=== PATIENT | female | born 1985 ===

== ENCOUNTER 2019-05-26 18:47 | Emergency (ER) | payer OTHER ==
--- OUTSIDE RECORDS SUMMARY | 2019-05-26 20:10 | XMS REPORT | Continuity of Care Document ---
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 [phone] Problems Description No Information Available Social History Type Date Description Comments Sex Unknown Tobacco Use Start: Unknown Never Smoked Cigarettes Smoking Status Reviewed: 05/03/18 Never Smoked Cigarettes ETOH Use Rare Use Of Alcohol Recreational Drug Use Never Used Drugs Allergies, Adverse Reactions, Alerts Active Allergies Reaction Severity Comments Date Penicillin 05/01/2018 Shellfish-Derived Products 05/01/2018 Medications Active Medications SIG Qnty Indications Ordering Provider Date Fluticasone Propionate 2 sprays each 29.7ml William Omer, 04/01/2019 nostril every M.D. 50mcg/Act Suspension day Azithromycin 2 pills x 1 day 6tabs William Omer, 04/01/2019 250mg then 1 every day M.D. Tablets for 4 days Levothyroxine Sodium 1 by mouth every Unknown day 75mcg Tablets Immunizations Description No Information Available Vital Signs Date Vital Result Comment 04/01/2019 9:35am Weight 121.00 lb Height 63 inches 5'3" BMI (Body Mass Index) 21.4 kg/m2 BP Systolic 124 mmHg BP Diastolic 85 mmHg Heart Rate 79 /min O2 % BldC Oximetry 98 % Body Temperature 98.6 F Pain Level 3 05/01/2018 10:00am Weight 115.00 lb Height 63 inches 5'3" BMI (Body Mass Index) 20.4 kg/m2 BP Systolic 92 mmHg BP Diastolic 63 mmHg Heart Rate 54 /min O2 % BldC Oximetry 100 % Body Temperature 97.9 F Raymond Score 15 Neck Circumference in inches 12.25 Pain Level 0 Results Description No Information Available Procedures Date Code Description Status 04/01/2019 76996 Nasal Endoscopy, Diag. Completed Medical Devices Description No Information Available Encounters Type Date Location Provider Dx Diagnosis Office Visit 04/01/2019 Main Office Myriam Klein J34.3 Hypertrophy of nasal 9:30a SCULLION CHIEF turbinates J01.90 Acute sinusitis, unspecified Assessments Date Code Description Provider 04/01/2019 J34.3 Hypertrophy of nasal turbinates Myriam Klein NP 04/01/2019 J01.90 Acute sinusitis, unspecified Myriam Klein NP Plan of Treatment Future Appointment(s):05/03/2019 2:15 pm - Myriam Klein NP at Main Office Functional Status Description No Information Available Mental Status Description No Information Available Referrals Description No Information Available
--- OUTSIDE RECORDS SUMMARY | 2019-05-26 20:10 | XMS REPORT | Continuity of Care Document ---
:1985 External Reference #:[id number] Author Name Zhang Durham (transmitted by agent of provider Ivy Villegas) Address [address] [place] [address] Problems Description No Information Available Social History Type Date Description Comments Sex Unknown Tobacco Use Start: Unknown Patient has never smoked Smoking Status Reviewed: 06/16/17 Patient has never smoked Allergies, Adverse Reactions, Alerts Active Allergies Reaction Severity Comments Date Penicillin 01/24/2017 Shellfish-Derived Products hives 01/24/2017 Medications Active Medications SIG Qnty Indications Ordering Provider Date Levothyroxine Sodium Tab 1 PO Q 90tabs Amanda Douglass MD 05/05/2017 75mcg Day Tablets Medications Administered in Office Medication SIG Qnty Indications Ordering Provider Date PPD Injection Amanda Douglass MD 01/27/2018 PPD Injection Nurse 01/27/2018 PPD Injection Amanda Douglass MD 01/29/2017 Immunizations CPT Code Status Date Vaccine Lot # [id number] Given 02/27/2017 Tetanus,Diphtheria,Adut/Adol Pertussis [id number] Given 02/27/2017 Tetanus,Diphtheria,Adut/Adol Pertussis [id number] Vital Signs Date Vital Result Comment 03/09/2019 3:05pm BP Systolic 110 mmHg BP Diastolic 80 mmHg Heart Rate 85 /min Respiratory Rate 16 /min Height 64.5 inches 5'4.50" Weight 125.00 lb BMI (Body Mass Index) 21.1 kg/m2 O2 % BldC Oximetry 99 % 09/24/2018 11:51am BP Systolic 90 mmHg BP Diastolic 60 mmHg Heart Rate 88 /min Body Temperature 99.0 F Height 63 inches 5'3" Weight 125.00 lb BMI (Body Mass Index) 22.1 kg/m2 O2 % BldC Oximetry 97 % Results Test Acquired Date Facility Test Result H/L Range Note Laboratory test 04/08/2019 [facility] Thyroid Stim 4.13 uIU/mL Normal 0.30-4.[address] [place] [address] [phone] Free T4 0.91 ng/dL Normal 0.76-1.46 CBS W/Automated 02/22/2019 [facility] White 5.0 K/uL Normal 3.1-10.7 [address] [place] [address] Count [phone] Red Blood Count 4.55 M/uL Normal 3.90-5.40 Hemoglobin 14.2 gm/dL Normal 11.6-15.8 Hematocrit 41.9 % Normal 36.0-46.1 Mean Cell Volume 92.1 fl Normal 80.9-99.0 Mean Corpuscular HGB 31.2 pg Normal 25.9-32.7 Mean Corpuscular HGB Conc 33.9 g/dL Normal 30.8-34.3 Platelet Count 243 K/uL Normal 155-360 Red Cell Distri Width SD 42.6 fl Normal 36-47 Red Cell Distri Width %CV 12.6 % Normal 11.7-14.4 Mean Platelet Volume 9.9 fl Normal 8.9-12.4 Neut% 60.2 % Normal 40.4-72.8 Lymph % 30.6 % Normal 20.0-42.0 [place] % 6.0 % Normal 4.3-13.2 Eo% 2.0 % Normal 0.0-6.6 Bas% 0.8 % Normal 0.0-1.1 Immature Grans 0.4 % Normal 0.0-5.0 NRBC % 0.0 /100WBC < 10/ 100 WBC Neut# 3.03 K/uL Normal 1.8-7.0 Lymph # 1.54 K/uL Normal 1.0-4.0 [place] # 0.30 K/uL Normal 0.3-0.9 Eos # 0.10 K/uL Normal 0.0-0.5 Baso # 0.04 K/uL Normal 0.0-0.1 Immature Grans Absolute 0.02 K/uL NRBC # 0.00 K/uL Comprehensive 02/22/2019 [facility] Glucose 92 mg/dL Normal 74-106 Metabolic Panel [address] [place], [place] [id number] [phone] BUN 19 mg/dL High 7-18 Creatinine 1.0 mg/dL Normal 0.6-1.3 Glom Filtration Rate, Estimate >60 mL/min >60 If >60 mL/min >60 2 BUN/Creat 19.0 ratio Sodium 136 mmol/L Normal 136-145 Potassium 3.8 mmol/L Normal 3.5-5.1 Chloride 105 mmol/L Normal 98-107 Carbon Dioxide 28 mmol/L Normal 21-32 Anion Gap 3 mEq/L Low 8-16 Calcium 8.5 mg/dL Normal 8.5-10.1 Total Protein 8.0 g/dL Normal 6.4-8.2 Albumin 4.4 g/dL Normal 3.4-5.0 Globulin 3.6 g/dL Normal 1.9-4.3 Alb/Glob 1.2 ratio Bilirubin,Total 0.6 mg/dL Normal 0.2-1.0 Sgot/Ast 16 U/L Normal 15-37 SGPT/Alt 21 U/L Normal 12-78 Alkaline Phosphatase 53 U/L Normal 45-117 Direct LDL 02/22/2019 [facility] LDL Chol. 98 mg/dL 0-99 [address] (Direct) [place] [address] [phone] .TSH+Free T4 02/22/2019 [facility] Thyroid Stim 8.02 High 0.30-4.20 ([place] [facility] [place] [address] Hormone uIU/[place] [address] [phone] Free T4 1.09 ng/dL Normal 0.76-1.46 1 E11.65 J44.9 I48.0 E03.9 2 Note: Persistent reduction for 3 months or more in an eGFR <60 mL/min/1.73 m2 defines CKD. Patients with eGFR values >/=60 mL/min/1.73 m2 may also have CKD if evidence of persistent proteinuria is present. The original MDRD equation for estimated GFR is not valid for patients less than 18 years of age. Additional information may be found at www.kdoqi.org. 3 Performed at: RN - [facility] [address] [id number] High School Band Teacher: Arianne Whittington MD, Phone: [phone] Procedures Description No Information Available Medical Devices Description No Information Available Encounters Type Date Location Provider Dx Diagnosis Office Visit 03/09/2019 3:00p Main Office Amanda Douglass MD E03.9 Hypothyroidism, unspecified Z00.00 Encntr for general adult medical exam w/o abnormal findings J30.9 Allergic rhinitis, unspecified Assessments Date Code Description Provider 03/09/2019 E03.9 Hypothyroidism, unspecified Amanda Douglass MD 03/09/2019 Z00.00 Encounter for general adult medical examination Amanda Douglass MD without abnormal findings 03/09/2019 J30.9 Allergic rhinitis, unspecified Amanda Douglass MD Plan of Treatment Future Appointment(s):05/26/2019 11:00 am - Zhang Durham at Main Office Functional Status Description No Information Available Mental Status Description No Information Available Referrals Refer to Reason for Referral Status Appt Date William Omer M.D. [facility] Closed 04/01/[address] [place] [address] [phone]
--- OUTSIDE RECORDS SUMMARY | 2019-05-26 20:10 | XMS REPORT | Continuity of Care Document ---
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 50mcg/Act Suspension day Levothyroxine Sodium 1 by mouth every Unknown day 75mcg Tablets History Medications Azithromycin 2 pills x 1 day 6tabs William Omer, 04/01/2019 - 250mg Tablets then 1 every day M.D. 05/10/2019 for 4 days Immunizations Description No Information Available Vital Signs Date Vital Result Comment 05/10/2019 11:26am Weight 123.00 lb Height 63 inches 5'3" BMI (Body Mass Index) 21.8 kg/m2 BP Systolic 102 mmHg BP Diastolic 69 mmHg Heart Rate 61 /min O2 % BldC Oximetry 98 % Body Temperature 97.7 F Pain Level 0 04/01/2019 9:35am Weight 121.00 lb Height 63 inches 5'3" BMI (Body Mass Index) 21.4 kg/m2 BP Systolic 124 mmHg BP Diastolic 85 mmHg Heart Rate 79 /min O2 % BldC Oximetry 98 % Body Temperature 98.6 F Pain Level 3 Results Description No Information Available Procedures Date Code Description Status 04/01/2019 60568 Nasal Endoscopy, Diag. Completed Medical Devices Description No Information Available Encounters Description No Information Available Assessments Date Code Description Provider 04/01/2019 J34.3 Hypertrophy of nasal turbinates Myriam Klein NP 04/01/2019 J01.90 Acute sinusitis, unspecified Myriam Klein NP Plan of Treatment No Information Available Functional Status Description No Information Available Mental Status Description No Information Available Referrals Description No Information Available
--- OUTSIDE RECORDS SUMMARY | 2019-05-26 20:10 | XMS REPORT | Continuity of Care Document ---
:1985 External Reference #:[id number] Author Name Myriam Klein NP Address [address] [place] [address] Care Team Providers Name Role Phone Amanda Douglass MD - Internal Medicine Care Team Information Public Relations Intern [phone] Problems Description No Information Available Social History [...] Available Procedures Date Code Description Status 04/01/2019 78457 Nasal Endoscopy, Diag. Completed Medical Devices Description No Information Available Encounters Type Date Location Provider Dx Diagnosis Office Visit 05/10/2019 Main Office Myriam Klein J34.3 Hypertrophy of nasal 11:30a VEGETABLE CUTTER turbinates J32.9 Chronic sinusitis, unspecified J31.0 Chronic rhinitis Assessments Date Code Description Provider 05/10/2019 J34.3 Hypertrophy of nasal turbinates Myriam Klein NP 05/10/2019 J32.9 Chronic sinusitis, unspecified Myriam Klein NP 05/10/2019 J31.0 Chronic rhinitis Myriam Klein NP 04/01/2019 J34.3 Hypertrophy of nasal turbinates Myriam Klein NP 04/01/2019 J01.90 Acute sinusitis, unspecified Myriam Klein NP Plan of Treatment Future Appointment(s):05/24/2019 11:00 am - Myriam Klein NP at Main Office Functional Status Description No Information Available Mental Status Description No Information Available Referrals Description No Information Available
--- OUTSIDE RECORDS SUMMARY | 2019-05-26 20:10 | XMS REPORT | Continuity of Care Document ---
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 No Information Available Social History [...] Qnty Indications Ordering Provider Date Levothyroxine Sodium 1 by mouth Unknown 75mcg every day Tablets Immunizations Description No Information Available Vital [...] Oximetry 100 % Body Temperature 97.9 F Crawford Score 15 Neck Circumference in inches 12.25 Pain Level 0 Results Description No Information Available Procedures Description No Information Available Medical Devices Description No Information Available Encounters Description No Information Available Assessments Description No Information Available Plan of Treatment No Information Available Functional Status Description No Information Available Mental Status Description No Information Available Referrals Description No Information Available
--- OUTSIDE RECORDS SUMMARY | 2019-05-26 20:10 | XMS REPORT | Continuity of Care Document ---
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 Problems Description No Information Available Social History [...] Available Vital Signs Date Vital Result Comment 05/24/2019 11:17am Weight 121.00 lb Height 63 inches 5'3" BMI (Body Mass Index) 21.4 kg/m2 BP Systolic 105 mmHg BP Diastolic 71 mmHg Heart Rate 70 /min O2 % BldC Oximetry 100 % Body Temperature 98.2 F Pain Level 0 05/10/2019 11:26am Weight 123.00 lb Height 63 inches 5'3" BMI (Body Mass Index) 21.8 kg/m2 BP Systolic 102 mmHg BP Diastolic 69 mmHg Heart Rate 61 /min O2 % BldC Oximetry 98 % Body Temperature 97.7 F Pain Level 0 Results Test Acquired Date Facility Test Result H/L Range Note Allergens,Zon 05/10/2019 [facility] mRast Class (SEE NOTE) 1, [address] (Text Only) [place] [address] [phone] D Pteronyssinus <0.10 kU/L Class 0 D Farinae Mite <0.10 kU/L Class 0 Cat Hair/Dander <0.10 kU/L Class 0 Dog Hair/Dander <0.10 kU/L Class 0 Bluegrass,[place] <0.10 kU/L Class 0 Bermuda Grass <0.10 kU/L Class 0 Bahia Grass <0.10 kU/L Class 0 Cockroach,Lao <0.10 kU/L Class 0 Penicillium Not <0.10 kU/L Class 0 Cladosporium Herbarum <0.10 kU/L Class 0 Apergillis Fumigatus Ige <0.10 kU/L Class 0 Mucor Racemosus <0.10 kU/L Class 0 Alternaria Alternata <0.10 kU/L Class 0 Stemphylium Bot <0.10 kU/L Class 0 Birch,White <0.10 kU/L Class 0 Tanana,White <0.10 kU/L Class 0 Elm,Lao (White) <0.10 kU/L Class 0 Markell,White <0.10 kU/L Class 0 Hazelnut Tree T004 Ige <0.10 kU/L Class 0 Osco,White <0.10 kU/L Class 0 Anderson,White <0.10 kU/L Class 0 [place],Mountain <0.10 kU/L Class 0 Ragweed,Short/ <0.10 kU/L Class 0 Mugwort <0.10 kU/L Class 0 Plantain,Hungarian <0.10 kU/L Class 0 Pigweed,Rough <0.10 kU/L Class 0 Sheep [place] (DO <0.10 kU/L Class 0 Nettle <0.10 kU/L Class 0 3 Maple/[place] Ige T001 <0.10 kU/L Class 0 1 J34.3 J32.9 2 Levels of Specific IgE Class Description of Class ----- < 0.10 0 Negative 0.10 - 0.31 0/I Equivocal/Low 0.32 - 0.55 I Low 0.56 - 1.40 II Moderate 1.41 - 3.90 III High 3.91 - 19.00 IV Very High 19.01 - 100.00 V Very High >100.00 Very High 3 Test(s) [id number] Cockroach, Lao; 316757- Z413-RfX Elisabeth Schreiber were developed and had performance characteristics determined by [employer]. These tests have not been cleared or approved by the U.S. Food and Drug Administration. The FDA has determined that such clearance or approval is not necessary. These tests are used for clinical purposes. These should not be regarded as investigational or for research. Performed at: [address] [id number] Linen Clerk: Shaheed Javier MD, Phone: [phone] Procedures Date Code Description Status 04/01/2019 67201 Nasal Endoscopy, Diag. Completed Medical Devices Description No Information Available Encounters Type Date Location Provider Dx Diagnosis Office Visit 05/10/2019 Main Office Myriam Klein J34.3 Hypertrophy of nasal 11:30a RELAY ASSOCIATE turbinates J32.9 Chronic sinusitis, unspecified J31.0 Chronic [...] Refer to Reason for Referral Status Appt William Bravo M.D. AUTH FOR CT SINUS Created [address] [place] [address] [phone]
--- OUTSIDE RECORDS SUMMARY | 2019-05-26 20:10 | XMS REPORT | Continuity of Care Document ---
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 No Information Available Social History [...] Test Result H/L Range Note Allergens,Zon 05/10/2019 [facility] mRast Class (SEE NOTE) 1, 2 e 1 [address] (Text Only) [place] [address] [phone] D Pteronyssinus <0.10 kU/L Class 0 D Farinae Mite <0.10 kU/L Class 0 Cat Hair/Dander <0.10 kU/L Class 0 Dog Hair/Dander <0.10 kU/L Class 0 Bluegrass,[place] <0.10 kU/L Class 0 Bermuda Grass <0.10 kU/L Class 0 Bahia Grass <0.10 kU/L Class 0 Cockroach,Swedish <0.10 kU/L Class 0 Penicillium Not <0.10 kU/L Class 0 Cladosporium Herbarum <0.10 kU/L Class 0 Apergillis Fumigatus Ige <0.10 kU/L Class 0 Mucor Racemosus <0.10 kU/L Class 0 Alternaria Alternata <0.10 kU/L Class 0 Stemphylium Bot <0.10 kU/L Class 0 Birch,White <0.10 kU/L Class 0 Bartlett,White <0.10 kU/L Class 0 Elm,Swedish (White) <0.10 kU/L Class 0 Markell,White <0.10 kU/L Class 0 Hazelnut Tree T004 Ige <0.10 kU/L Class 0 Spruce Pine,White <0.10 kU/L Class 0 Bunola,White <0.10 kU/L Class 0 [place],Mountain <0.10 kU/L Class 0 Ragweed,Short/ <0.10 kU/L Class 0 Mugwort <0.10 kU/L Class 0 Plantain,Hungarian <0.10 kU/L Class 0 Pigweed,Rough <0.10 kU/L Class 0 Sheep [place] (DO <0.10 kU/L Class 0 Nettle <0.10 kU/L Class 0 3 Maple/[place] Ige T001 <0.10 kU/L Class 0 1 J34.3 J32.9 2 Levels of Specific IgE Class Description of Class ----- < 0.10 0 Negative 0.10 - 0.31 0/I Equivocal/Low 0.32 - 0.55 I Low 0.56 - 1.40 II Moderate 1.41 - 3.90 III High 3.91 - 19.00 IV Very High 19.01 - 100.00 V Very High >100.00 Very High 3 Test(s) [id number] Cockroach, Swedish; 576539- [id number] Elisabeth Schreiber were developed and had performance characteristics determined by [employer]. These tests have not been cleared or approved by the U.S. Food and Drug Administration. The FDA has determined that such clearance or approval is not necessary. These tests are used for clinical purposes. These should not be regarded as investigational or for research. Performed at: [address] [id number] Legal Cashier: Shaheed Javier MD, Phone: [phone] Procedures Date Code Description Status 05/24/2019 84089 Cat Scan Maxillofacial W/O Contrast,computed tomography Completed 05/24/2019 56354 Cat Scan Maxillofacial W/O Contrast,computed tomography Completed 04/01/2019 23763 Nasal Endoscopy, Diag. 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 Office Visit 05/10/2019 Main Office Myriam Klein J34.3 Hypertrophy of nasal 11:30a DIESEL ENGINE ENGINEER turbinates J32.9 Chronic sinusitis, unspecified J31.0 Chronic rhinitis Assessments Date Code Description Provider 05/24/2019 J32.9 Chronic sinusitis, unspecified Myriam Klein NP 05/10/2019 J34.3 Hypertrophy of nasal turbinates Myriam Klein NP 05/10/2019 J32.9 Chronic sinusitis, unspecified Myriam Klein NP 05/10/2019 J31.0 Chronic rhinitis Myriam Klein NP 04/01/2019 J34.3 Hypertrophy of nasal turbinates Myriam Klein NP 04/01/2019 J01.90 Acute sinusitis, unspecified Myriam Klein NP Plan of Treatment Future Appointment(s):08/23/2019 10:30 am - Myriam Klein NP at Main Office Functional Status Description No Information Available Mental Status Description No Information Available Referrals Refer to Reason for Referral Status Appt Date William Omer M.D. AUTH FOR CT SINUS Created [address] [place] [address] [phone]
[2019-05-26 20:14] VITALS: BP 113/65
[2019-05-26 20:34] LABS: Influenza A Molecular Negative (Negative); Influenza B Molecular Negative (Negative)
--- NOTE | 2019-05-26 20:52 | UC ---
FLU HPI - HPI Summary HPI Summary: Pt presents with c/o sudden onset of fever, chills, body aches, cough, ST X 6 days. Pt has known exposure to flu. Pt states symptoms are improving but wants to know if she has flu. - History of Current Complaint Chief Complaint: UCRespiratory Stated Complaint: FLU SYMP Time Seen by Provider: 05/26/19 20:35 Hx Obtained From: Patient ?: No Onset/Duration: Sudden Onset, Lasting Days, Still Present Severity Currently: Moderate Severity Initially: Mild Pain Intensity: 2 Associated Signs & Symptoms: Positive: Fever, Myalgia, Cough, Sore Throat, Nasal Congestion Related Hx: Possible Flu/Infectious Exposure - Risk Factors Influenza Risk Factors: Negative - Allergy/Home Medications Allergies/Adverse Reactions: Allergies Allergy/AdvReac Type Severity Reaction Status Date / Time Penicillins Allergy Unknown Verified 05/26/19 20:15 Reaction Details Home Medications: Home Medications Dm/Acetaminophen/Doxylamine [Vicks Nyquil Liquicaps] 1 cap PO 05/26/19 [History] Ibuprofen 200 mg PO 05/26/19 [History] Levothyroxine TAB* [Synthroid 75 MCG TAB*] 75 mcg PO 0800 05/26/19 [History Confirmed 05/26/19] PMH/Surg Hx/FS Hx/Imm Hx Previously Healthy: Yes - Surgical History Surgical History: None - Family History Known Family History: Positive: Cardiac Disease - Social History Occupation: Employed Full-time Lives: With Family Alcohol Use: Rare Substance Use Type: None Smoking Status (MU): Never Smoked Tobacco Have You Smoked in the Last Year: No Review of Systems All Other Systems Reviewed And Are Negative: Yes Constitutional: Positive: Fever, Chills, Fatigue Skin: Positive: Negative Eyes: Positive: Negative ENT: Positive: Sinus Congestion Respiratory: Positive: Cough Cardiovascular: Positive: Negative Gastrointestinal: Positive: Negative Genitourinary: Positive: Negative Motor: Positive: Negative Neurovascular: Positive: Negative Musculoskeletal: Positive: Myalgia Neurological/Mental Status: Positive: Negative Psychological: Positive: Negative Is Patient Immunocompromised?: No Physical Exam Triage Information Reviewed: Yes Appearance: Well-Appearing Vital Signs: Initial Vital Signs Temp 99.3 F 05/26/19 20:11 Pulse 63 05/26/19 20:11 Resp 18 05/26/19 20:11 BP 113/65 05/26/19 20:11 Pulse Ox 100 05/26/19 20:11 Vital Signs Reviewed: Yes Eye Exam: Normal ENT: Positive: Nasal congestion Dental Exam: Normal Neck exam: Normal Respiratory Exam: Normal Cardiovascular Exam: Normal Musculoskeletal Exam: Normal Neurological Exam: Normal Psychological Exam: Normal Skin Exam: Normal Flu Course/Dx - Differential Dx/Diagnosis Differential Diagnosis/HQI/PQRI: Influenza, Upper Respiratory Infection Provider Diagnosis: Viral syndrome Discharge ED - Sign-Out/Discharge Documenting (check all that apply): Patient Departure All imaging exams completed and their final reports reviewed: No Studies - Discharge Plan Condition: Stable Disposition: HOME Patient Education Materials: Viral Syndrome (ED) Referrals: Amanda Dougalss MD [Primary Care Provider] - If Needed - Billing Disposition and Condition Condition: STABLE Disposition: Home
== END 2019-05-26 21:04 | disposition home or self-care (01) ==
LOC: UCCORT 18:47
DX: B34.9 Viral infection, unspecified (principal); M79.10 Myalgia, unspecified site; R05 Cough; J02.9 Acute pharyngitis, unspecified; R09.81 Nasal congestion; R53.83 Other fatigue; Z20.828 Contact with and (suspected) exposure to other viral communicable diseases; Z88.0 Allergy status to penicillin
CPT/HCPCS: 99211; G0463